=== PATIENT | male | born 1995 | race Hispanic/Latino ===

== ENCOUNTER 2017-02-12 08:25 | Emergency (ER) | payer OTHER ==
[~2017-02-12] VITALS: Ht 167.6 cm; Wt 79.0 kg
[~2017-02-12 08:25] MED LIST: ALAVERT10 MG PO; AMOXICILLIN500 MG PO; BACTRIM DS1 TAB PO; BENTYL10 MG PO; BENZTROPINE0.5 MG PO; CARBAMAZEPIN200 MG OR; CARBAMAZEPIN200 MG PO; CELEXA20 MG PO; CETIRIZINE10 MG PO; CITALOPRAM20 MG OR; CITALOPRAM40 MG PO; CLONAZEPAM0.5 MG PO; CYPROHEPTAD4 MG PO; DIVALPROEX SOD250 MG PO; DOCU SOFT100 MG OR; ECK ACETAMIN325 MG PO; ERYTHROMYCIN E400 MG PO; HALOPERIDOL1 MG PO; HALOPERIDOL2 MG PO; IMIPRAM HCL PO; IMIPRAM HCL25 M1 OR; LITHIUM CARB150 MG PO; LITHIUM CARB300 MG PO; LORAZEPAM0.5 MG PO; MAG OXIDE400 MG PO; MAGNESIUM-OX400 MG OR; MAGNESIUM-OX400 MG PO; MAGNESIUM400 MG PO; MIRTAZAPINE15 M1 PO; PERCOCET 5/325M1 TAB PO; PRAZOSIN HCL2 MG PO; PREVACID30 M3 PO; RISPERDAL3 MG PO; RISPERIDONE2 MG PO; RISPERIDONE4 MG PO; TOPAMAX200 M1 PO; TRILEPTAL300 M1; TRILEPTAL300 MG OR; TRILEPTAL600 M1 OR; TRILEPTAL600 M1 PO; VENLAFAXINE HC150 MG PO; VENLAFAXINE HCL75 M1 PO; VIMPAT100 MG PO; VIMPAT200 MG PO; ZOLOFT25 MG PO; ZOLOFT50 MG PO; ZONEGRAN100 MG PO
[2017-02-12 09:28] LABS: URINE BILIRUBIN - DIPSTICK NEGATIVE (NEGATIVE); URINE BLOOD DIPSTICK NEGATIVE (NEGATIVE); URINE CLARITY CLEAR; URINE COLOR YELLOW; URINE GLUCOSE - DIPSTICK NEGATIVE (NEGATIVE); URINE KETONE NEGATIVE (NEGATIVE); URINE LEUK ESTERASE NEGATIVE (NEGATIVE); URINE NITRITE - DIPSTICK NEGATIVE (Negative); URINE PH 6.5 (4.5-8.0); URINE PROTEIN - DIPSTICK NEGATIVE (NEG-TRACE); URINE SPECIFIC GRAVITY 1.015; URINE UROBILINOGEN - DIPSTICK 0.2 E.U./dL (0.2)
[2017-02-12] MEDS ORDERED: RISPERDAL2 MG PO (09:28)
[2017-02-12 09:29] LABS: HEMATOCRIT 42.7 % (39.0-50.0); HEMOGLOBIN 14.9 g/dl (14.0-18.0); IMMATURE GRANULOCYTES 0.3 % (0.0-1.0); MEAN CELL VOLUME 91.8 fL CALC (80.0-100.0); MEAN CORPUSCULAR HGB CONC 34.9 g/L CALC (32.0-36.0); NEUT# 10.12 thou/uL (1.82-7.42); RED BLOOD COUNT 4.65 mill/uL (4.70-6.10); RED CELL DISTRI WIDTH 12.6 % (11.5-15.5)
[2017-02-12] MEDS ORDERED: HALOPERIDOL1 MG PO (09:29)
[2017-02-12 09:40] LABS: ALBUMIN 5.1 g/dL (3.2-5.0); ALKALINE PHOSPHATASE 147 u/l (38-126); AMYLASE 84 u/l (30-110); ANION GAP 20 (6-22 (CALC)); BILIRUBIN, TOTAL 0.5 mg/dL (0.0-1.4); BUN 9 mg/dL (9-20); BUN/CREATININE RATIO 13 (12-20 (CALC)); CALCIUM 9.7 mg/dL (8.4-10.2); CARBON DIOXIDE 23 mmol/l (22-30); CHLORIDE 106 mmol/l (95-108); CREATININE 0.7 mg/dL (0.7-1.3); GFR > 60 ML/MIN (>=60 (CALC)); GFR FOR AFR.AMER. > 60 ML/MIN (>=60 (CALC)); GLUCOSE 102 mg/dL (75-110); LIPASE 167 u/l (23-300); POTASSIUM 4.3 mmol/l (3.5-5.1); SGOT/AST 61 u/l (17-59); SGPT/ALT 143 u/l (21-72); SODIUM 144 mmol/l (137-146); TOTAL PROTEIN 8.4 g/dL (6.3-8.2)
[2017-02-12 10:07] LABS: MYOGLOBIN 33 ng/mL (0 - 121)
[2017-02-12 10:34] LABS: INFLUENZA A NONE DETECTED (NONE DETECT); INFLUENZA B NONE DETECTED (NONE DETECT)
[2017-02-12] MEDS ORDERED: XANAX0.25 MG PO (12:24)
[2017-02-12] MEDS ORDERED: AMOXICILLIN500 MG PO (12:24)
[2017-02-12 12:42] VITALS: BP 126/70
== END 2017-02-12 12:42 | disposition left against medical advice (07) | DRG 153 ==
LOC: ED 08:25
PROVIDERS: Emergency Medicine
DX: J32.9 Chronic sinusitis, unspecified (principal); R51 Headache; R11.2 Nausea with vomiting, unspecified; Z91.19 Patient's noncompliance with other medical treatment and regimen

== ENCOUNTER 2020-03-21 18:33 | Emergency (ER) | payer OTHER ==
[~2020-03-21] VITALS: Ht 165.1 cm; Wt 79.8 kg
[~2020-03-21 18:33] MED LIST changes: +RISPERDAL2 MG PO; +XANAX0.25 MG PO
[2020-03-21] MEDS ORDERED: FLOXIN OTIC0.3 % AD (18:55)
[2020-03-21 18:56] VITALS: BP 150/87
== END 2020-03-21 19:00 | disposition home or self-care (01) ==
LOC: ED 18:33
DX: H60.91 Unspecified otitis externa, right ear (principal)